=== PATIENT | male | born 1965 ===

== ENCOUNTER 2018-08-11 01:17 | Emergency (ER) | payer SELFPAY ==
[2018-08-11 01:28] VITALS: BMI 24.2
[2018-08-11 01:37] VITALS: BP 142/93; PULSE 77; RESP 19; TEMP 97.6; O2SAT 97
--- NOTE | 2018-08-11 02:00 | C.PDOC ---
History Of Present Illness 52 year old male is brought to the ED by EMS for public intoxication. Patient reports he was trying to call his [employer] abby, who he has on speed dial when he was picked up by EMS. Patient states he does not want to be here, states he is fine wants to go home. Patient refuses to be examined. Time Seen by Provider: 08/11/18 01:34 Chief Complaint (Nursing): Substance Abuse History Per: Patient, EMS History/Exam Limitations: intoxication Onset/Duration Of Symptoms: Hrs Current Symptoms Are (Timing): Still Present Suicide/Self Injury Attempted (Context): None Modifying Factor(s): Alcohol Associated Symptoms: denies: Depression, Suicidal Thoughts, Suicidal Plan Recent travel outside of the [place]: No Additional History Per: Patient, EMS Past Medical History Reviewed: Historical Data, Nursing Documentation, Vital Signs Vital Signs: Last Vital Signs Temp 97.6 F 08/11/18 01:28 Pulse 77 08/11/18 01:28 Resp 19 08/11/18 01:28 BP 142/93 H 08/11/18 01:28 Pulse Ox 97 08/11/18 01:28 Primary Care Provider: FAMILY PROVIDER,NO - Medical History PMH: Hypercholesterolemia Surgical History: No Surg Hx Family History: States: Unknown Family Hx - Social History Hx Alcohol Use: Yes Hx Substance Use: No Review Of Systems Review Of Systems: ROS cannot be obtained secondary to pt's inabilty to answer questions. (refused) Physical Exam - Physical Exam Additional Physical Exam Comments: Patient refused to be examined. Patient is AOx3, walking upright steady gait. ED Course And Treatment O2 Sat by Pulse Oximetry: 97 (ON RA) Pulse Ox Interpretation: Normal Progress Note: Patient knows his address, able to call an Uber from his phone. Patient's phone has confirmation in his phone. Patient is walked to his [employer] car by [employer]. 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 - Scribe Statement The provider has reviewed the documentation as recorded by the Scribe Dick Herrera All medical record entries made by the Scribe were at my direction and personally dictated by me. I have reviewed the chart and agree that the record accurately reflects my personal performance of the history, physical exam, medical decision making, and the department course for this patient. I have also personally directed, reviewed, and agree with the discharge instructions and disposition.
== END 2018-08-11 01:55 | disposition home or self-care (01) ==
LOC: C.ER 01:17
DX: F10.10 Alcohol abuse, uncomplicated (principal)